=== PATIENT | female | born 1975 | race Caucasian/White ===

== ENCOUNTER 2022-05-01 17:22 | Emergency (ER) | payer OTHER, SELFPAY ==
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
[2022-05-01 17:28] VITALS: BP 129/77; PULSE 89; RESP 18; TEMP 36.8; O2SAT 100
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
[2022-05-01] MEDS: ACETAMINOPHEN 500 MG TABLET 1000 MG PO (21:03)
[2022-05-01 22:37] VITALS: PULSE 80; RESP 18; O2SAT 98
== END 2022-05-01 22:39 | disposition home or self-care (01) ==
PROVIDERS: Emergency Provider Emergency Medicine; PCP Nurse Practitioner
DX: S20.212A Contusion of left front wall of thorax, initial encounter (principal); M25.532 Pain in left wrist; V43.52XA Car driver injured in collision with other type car in traffic accident, initial encounter
CPT/HCPCS: 71046; 73110; 99284; A9270

== ENCOUNTER 2025-03-19 01:10 | Day surgery (SDC) | payer BC, SELFPAY ==
--- NOTE | 2025-03-10 08:50 | SUR.PREOP ---
[facility] has started construction of its new state of the art ER which will open Spring 2026. With this, we anticipate parking may be a challenge for some our surgical patients and families. Parking spaces are limited but are available for all Surgical, obstetrics, and ER patients sharing this lot. If you arrive and find you are having a hard time finding a parking space, please note that we understand the challenges, please drive around the hospital and park near Hospital Entrance 1. When you enter this entrance, you can ask a volunteer to direct or take you back to the surgical waiting area to check in. We appreciate everyone?s understanding of these expected challenges while we build for your future. Report to the Outpatient Waiting Room, entrance under the green pavilion located off [address], at time _1000_ on date _03/19/25_. Planned Procedure Time: _1200_.? Time changes happen often and if your time is changed the preop area will call you the afternoon before. - You and your visitor will be asked to self-screen and do not enter if you have any COVID symptoms. Please call surgeon if you need to reschedule. - A mask is optional within the hospital at this time. Patients may have clear liquids (water, carbonated beverages, clear teas, apple juice) until 3 hours (0900) prior to surgery with a maximum of 20 ounces. - No food from midnight until time of surgery and no smoking, or chewing tobacco (or any form of nicotine). No chewing gum, candy or mints. Take only the following medications with a SIP of water on the morning of surgery: _MIGRAINE MEDICATION IF NEEDED_ DO NOT STOP ANY OF YOUR OTHER PRESCRIPTION MEDICATIONS PRIOR TO SURGERY EXCEPT THE FOLLOWING Hold all vitamins and supplements for 3 days per anesthesiologist. Medications to discontinue per physician _NA_ Date to take last dose_NA_ Please no make-up, nail slovak, hairspray, perfume, deodorant, or body powder the day of surgery.? No jewelry (including any body piercings) or valuables the day of surgery, leave them at home.? Please take a shower or bath the night before, or the morning of, surgery with an antibacterial soap.? Wear comfortable, loose fitting clothing.? Children are encouraged to wear pajamas. - Jewelry must be removed prior to entering the operating room.? Rings and piercings that are not removed may be cut off. - The hospital will not accept responsibility for valuables.? - Please leave all valuables, including medications, at home the day of surgery. If you are going home after surgery, a licensed pile driver must drive you home.? - NO public transportation without another adult if you receive anesthesia. - We recommend that an adult stay with you for 24 hours following discharge. - We also recommend that you do not drive, make important decision, drink alcoholic beverages, or take any drugs that were not prescribed by your health care provider for at least 24 hours after your discharge time. Follow any additional instructions given to you from your surgeon. Telephone instructions given to _FRANCISCO_and asked if any additional questions and then verbalized understanding. Patient advised to call surgeon office or pre surgery nurse liaison [phone] if any additional questions.
[2025-03-10 09:16] VITALS: BMI 23.4
[2025-03-19] VITALS (10 sets, daily range): BP systolic 94–110; BP diastolic 57–75; PULSE 73–103; RESP 12–20; TEMP 36.4–37.4; O2SAT 99–100
--- NOTE | 2025-03-19 07:17 | WPDHPUPDATE1 ---
History and Physical Update Update Date/Time: 03/19/25 07:17 History and Physical has been reviewed, including an updated exam of the patient. There are NO changes in the patient's condition. Risks, benefits, and alternatives have been discussed and questions answered. Patient agrees to proceed with procedure.
[2025-03-19] MEDS: LACTATED RINGERS 1,000 ML 30 ML IV CONT (11:01)
[2025-03-19 11:08] LABS: BEDSIDEPREGUCG Negative (Negative)
--- NOTE | 2025-03-19 12:40 | P.PNAN_ITS ---
Anes - Initial Pre Proc Eval Procedure: Operation Date: 03/19/25 12:00 Proposed Procedures p Partial Plantar Fasciectomy Right Foot - Rakesh Alves Jr., DPM Date/Time: 03/19/25 12:40 Surgeon: Rakesh Alves Jr., DPM Pre Op Diagnosis: plantar fasciitis right foot Patient Data Age: 50 Gender: F Height: 1.68 m Weight: 67.3 kg Last Vital Signs Temp 99.3 F 03/19/25 11:03 Pulse 95 03/19/25 11:03 Resp 16 03/19/25 11:03 BP 94/65 L 03/19/25 11:03 Pulse Ox 100 03/19/25 11:03 O2 Del Method Room Air 03/19/25 11:03 Allergies Allergy/AdvReac Type Severity Reaction Status Date / Time metoclopramide (From Reglan) Allergy Unknown Verified 03/19/25 11:00 paroxetine (From Paxil) Allergy Unknown Verified 03/19/25 11:00 Home Medications ?Medication ?Instructions ?Recorded ?Confirmed ?Type cyclobenzaprine 5 mg tablet 10 mg PO TID PRN muscle sp asm 03/10/25 03/10/25 History frovatriptan 2.5 mg tablet 2.5 mg PO Q2H PRN migraine headache 03/10/25 03/10/25 History promethazine 12.5 mg tablet 12.5 mg PO Q12H PRN nausea and 03/10/25 03/10/25 History vomiting rimegepant 75 mg disintegrating 75 mg PO DAILY PRN allie bc 03/10/25 03/10/25 History tablet (Nurtec ODT) headache oxycodone-acetaminophen 5 mg-325 1 tablet PO Q4H PRN p ain #20 tabs 03/18/25 Rx mg tablet (Percocet) Laboratory Tests 03/19/25 11:03 POC Urine HCG, Qual Negative (Negative) Patient hx anesthesia problems: none Family hx anesthesia problems: none Results Review: All pre-operative results and documents have been reviewed as part of the pre- operative evaluation. [facility] Social History Social History Smoking status: Never smoker Second hand tobacco smoke exposure: No Alcohol intake: current Alcohol use details: SOCIALLY Substance use: never Substance use type: does not use Living arrangements: with family Spiritual care concerns: No Anes - Eval Final PreProcedure Day of Procedure 03/19/25 12:40 Patient weight: normal Lungs: normal air movement Airway: Mallampati scale class II Neurological: alert and oriented Last oral intake: >/= 8 hours ASA classification: I Emergent: no Anesthetic plan: proceed Anesthesia type and monitoring: general LMA and standard monitoring Results Review: All pre-operative results and documents have been reviewed as part of the pre- operative evaluation. 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 Informed Consent: The patient's anesthetic plan and its attendant risks and benefits were discussed with the patient/family/POA. Questions were solicited and answers provided to the satisfaction of the patient/family/POA.
[2025-03-19] MEDS: LIDOCAINE 2% LOCAL INJ 20 ML VIAL 10 ML INFILTRATE (12:56)
[2025-03-19] MEDS: BUPivacaine HCL 0.5% 10 ML AMP INFILTRATE (12:56)
[2025-03-19] MEDS: ceFAZolin 2 GM in SODIUM CHLORIDE 0.9% IV 50 ML 100 ML IVPB (12:56)
--- NOTE | 2025-03-19 13:28 | W.PM.PROC2 ---
Procedure Note - Detailed Date of Procedure 03/19/25 Pre-op Diagnosis Plantar fasciitis right foot Post-op Diagnosis Same Procedure Performed Partial plantar fasciectomy right foot Surgeon Rakesh Alves Jr., DPM Anesthesia MAC and Local Indications Painful right inferior heel recalcitrant to conservative treatment Findings Thick narrow origin of the plantar fascia Description of Procedure Under mild sedation, the patient was brought in to the operating room, placed on the operating table in the supine position. A pneumatic ankle tourniquet was placed about the patient's right ankle. Following general anesthesia, local anesthesia was obtained about the affected lower extremity utilizing 20 mL of a one to mix of 2% Lidocaine plain and 0.5% Marcaine plain to the tibial nerve. The foot was then scrubbed, prepped, and draped in the usual aseptic manner. An Esmarch bandage was then used to exsanguinate the patient's foot and the pneumatic ankle tourniquet was then inflated. Next, an incision was made starting distal to the medial tubercle of the calcaneus extending distally 3cm. All bleeders were cauterized as necessary. Next the dissection was continued down to the plantar fascia it was exposed medially and laterally with [employer] retractors. Two thirds of the medial plantar fascia was transected and a 4mm portion was also cut and discarded. The wound site was flushed with sterile saline. The deep subcutaneous tissue was reapproximated with 3.0 Vicryl and the skin was reapproximated with 2.0 Prolene and 3.0 Prolene in Vertical mattress and Simple interrupted suture technique. Upon completion of the procedure, the plantar incision was dressed with adaptic, 4x4 gauze, kerlix and coban. The pneumatic ankle tourniquet was then deflated and a prompt hyperemic response was noted to all digits of the affected foot. A CAM Walker boot was then applied. The patient did very well with the procedure and the anesthesia. The patient was transferred to the recovery room with vital signs stable and vascular status intact to all toes of the affected foot. Following a period of postoperative monitoring, the patient will be discharged home on the following written and oral postoperative instructions: 1. The patient should keep the dressing clean, dry, and intact. Use a cast protector bag with showers. 2. The patient will be non weight bearing with a knee scooter for one week followed by two weeks of protected weight bearing with CAM walker boot. 3. Patient should ice and elevate the affected foot when at rest. 4. The patient is to contact Dr. Alves for all postop care and if any problems arise. 5. Prescriptions were written for Percocet 5/325 dispensed 40 to be taken 1 p.o. q.4-6 hours as needed for severe pain. . Estimated Blood Loss 1 Drains No Packing No Pathology None sent Complications No immediate complications Condition Stable Disposition Same day
[2025-03-19] MEDS: oxyCODONE HCL (*CRX) 5 MG TAB IR PO (14:56)
== END 2025-03-19 15:38 | disposition home or self-care (01) ==
PROVIDERS: PCP Nurse Practitioner; Visit Provider Podiatrist Foot & Ankle Surgery
PROC: (CPT 28119; principal; 2025-03-19 12:00)
DX: M72.2 Plantar fascial fibromatosis (principal); Z79.891 Long term (current) use of opiate analgesic
CPT/HCPCS: 28060; J0690; A9270; J1100; J2003; J2250; J2405; J2704; J3010; J7120